=== PATIENT | male | born 1950 | race Caucasian/White ===

== ENCOUNTER → 2017-04-01 | Day surgery (SDC) | payer OTHER ==
[2017-03-29 07:38] VITALS: Ht 175.3 cm; Wt 106.4 kg
[~2017-04-01] VITALS: Ht 175.3 cm; Wt 106.4 kg
[~2017-04-01] MED LIST: ASPI81TA28 PO; GARL1CAP6 PO; LIDOCAINE HCL 2% 2 ML VIAL (20MG/ML) ONE; LISI-729 PO; MULT-506 PO; OMEGCAP2 PO; OMEP20TA PO; ONDANSETRON INJ 2 MG/ML 2 ML VIAL IV PRN; PROPOFOL IV EMULSION 10 MG/ML 20 ML VIAL IV ONE; VITA400C3 PO
--- NOTE | 2017-04-01 10:05 | Endo History and Physical ---
History & Physical Date of Service: Apr 01, 2017. Chief Complaint: Hx of colon polyps Referring Physician: Tessa History of Present Illness 66-year-old male with a history of a large colon polyp for surveillance colonoscopy today. He reports having no symptoms today. Past Surgical History Hx Cardiac Surgery: No Hx Internal Defibrillator: No Hx Pacemaker: No Hx Abdominal Surgery: No Hx of Implantable Prosthesis: No Hx Post-Op Nausea and Vomiting: No Hx Cancer Surgery: No Hx Thoracic Surgery: No Hx Orthopedic: Yes (LT TKA, RT KNEE SURGERY) Hx Urinary Tract Surgery: No Family History None Social History Smoking Status: Never Smoker Hx Substance Use: No Hx Alcohol Use: Yes (OCCASIONAL) Allergies Coded Allergies: Naproxen (Verified Allergy, Unknown, "BLISTER ON BACK", 04/01/17) Shrimp (Verified Allergy, Unknown, "CHILLS", 04/01/17) Current Medications Reported Home Medications Medications Dose Route/Sig Max Daily Dose Days Date Category Garlic 10 Mg Cap 1 Cap PO QAM 03/29/17 Reported Vitamin E 400 Iu (Vitamin E) 400 Unit Cap 400 Inter.unit PO QPM 03/29/17 Reported Omeprazole 20 Mg Tab 1 Tab PO DAILY PRN 01/11/16 Reported Multivitamin (Multivitamins) Tab 1 Tab PO QAM 01/11/16 Reported Aspirin Ec (Aspirin) 81 Mg Tab 81 Mg PO QPM 01/11/16 Reported Fish Oil ([place]-3 Fatty Acids) 1 Cap Cap 1 Cap PO BID 01/11/16 Reported Prinivil (Lisinopril) 5 Mg Tab 5 Mg PO BID 10/16/10 Reported Vital Signs Weight (Kilograms): 106.36 Height (Feet): 5 Height (Inches): 9 Date Time Temp Pulse Resp B/P (MAP) Pulse Ox O2 Delivery O2 Flow Rate FiO2 04/01/17 09:50 36.4 61 18 161/92 (115) 96 Room Air Physical Exam General Appearance: no apparent distress Respiratory/Chest: Auscultation: breath sounds normal Cardiovascular: Heart Auscultation: RRR Abdomen: Inspection & Palpation: soft, non-distended Assessment and Plan Patient with a history of a large colon polyp for surveillance colonoscopy today. We have discussed the risks to include bleeding, infection, perforation missed polyps and need for follow-up studies. Plan Colonoscpy today
--- NOTE | 2017-04-01 10:46 | Discharge Instructions ---
Endoscopy Patient Instructions Date / Procedure(s) Performed Apr 01, 2017. Colonoscopy Allergy Information Coded Allergies: Naproxen (Verified Allergy, Unknown, "BLISTER ON BACK", 04/01/17) Shrimp (Verified Allergy, Unknown, "CHILLS", 04/01/17) Discharge Date / Findings Apr 01, 2017. Internal hemorrhoids Diverticulosis of the sigmoid colon 1 colon polyp removed today (at site of prior polypectomy) Medication Instructions Stopped Medication(s): Aspirin stopped 03-28-17 Reported Home Medications Medications Dose Route/Sig Max Daily Dose Days Date Category Garlic 10 Mg Cap 1 Cap PO QAM 03/29/17 Reported Vitamin E 400 Iu (Vitamin E) 400 Unit Cap 400 Inter.unit PO QPM 03/29/17 Reported Omeprazole 20 Mg Tab 1 Tab PO DAILY PRN 01/11/16 Reported Multivitamin (Multivitamins) Tab 1 Tab PO QAM 01/11/16 Reported Aspirin Ec (Aspirin) 81 Mg Tab 81 Mg PO QPM 01/11/16 Reported Fish Oil ([place]-3 Fatty Acids) 1 Cap Cap 1 Cap PO BID 01/11/16 Reported Prinivil (Lisinopril) 5 Mg Tab 5 Mg PO BID 10/16/10 Reported Provider Instructions Activity Restrictions - No exercising or heavy lifting for 24 hours. - Do not drink alcohol the day of the procedure. - Do not drive a car or operate machinery until the day after the procedure. - Do not make any important decisions or sign important papers in 24 hours after the procedure. Following Day: - Return to full activity which may include returning to work/school. Diet Start your diet with liquids and light foods (jello, soup, juice, toast). Then eat your usual diet if not nauseated. Treatment For Common After Affects For mild abdominal pain, bloating, or excessive gas: - Rest - Eat lightly - Lie on right side Follow-Up Information Follow-up with Dr. Zarate as scheduled Repeat colonoscopy in 3 years depending on pathology results Anesthesia Information What You Should Know You have had a procedure that required some medicine to reduce anxiety and discomfort. This treatment is called moderate sedation. After receiving the treatment, you may be sleepy, but you will be able to breathe on your own. The effects of the treatment may last for several hours. Follow these instructions along with Activity/Diet recommendations noted above: * Do NOT do anything where dizziness or clumsiness would be dangerous. * Rest quietly at home today, then you can be up and about tomorrow. * Have a responsible person stay with you the rest of today. * You may have had an I.V. today. If so, you may take the dressing off later today. Recommendations Call your doctor if: * Trouble breathing * Continuous vomiting for more than 24 hours * Temperature above 101 degrees * Severe abdominal pain or bloating * Pain not relieved by pain medicine ordered * There is increased drainage or redness from any incision * A large amount of rectal bleeding greater than 2-3 tablespoons. (If you had a polyp/s removed or have hemorrhoids, a small amount of blood - from the rectum is to be expected.) * You have any unanswered questions or concerns. IN THE EVENT OF A SERIOUS EMERGENCY, GO TO THE NEAREST EMERGENCY ROOM Your discharge instructions were prepared by provider Robert Dow. Patient Instructions Signature Page John Blake Patient (or Guardian) Signature/Date: I have read and understand the instructions given to me by my caregivers. Caregiver/RN/Doctor Signature/Date: The above-named patient and/or guardian has received patient instructions on this date. + Original Patient Signature Page (only) stays with chart. Please make copy for patient.
--- NOTE | 2017-04-01 10:46 | GI REPORT ---
Procedure Date: 04/01/2017 9:55 AM Procedure: Colonoscopy Indications: High risk colon cancer surveillance: Personal history of colonic polyps Medicines: Monitored Anesthesia Care Complications: No immediate complications. Estimated blood loss: Minimal. Estimated Blood Loss: Estimated blood loss was minimal. Procedure: Pre-Anesthesia Assessment: - Prior to the procedure, a History and Physical was performed, and patient medications, allergies and sensitivities were reviewed. The patient's tolerance of previous anesthesia was reviewed. - The risks and benefits of the procedure and the sedation options and risks were discussed with the patient. All questions were answered and informed consent was obtained. - Patient identification and proposed procedure were verified prior to the procedure by the physician, the nurse and the cooler servicer. The procedure was verified in the procedure room. - Pre-procedure physical examination revealed no contraindications to sedation. - ASA Grade Assessment: II - A patient with mild systemic disease. - After reviewing the risks and benefits, the patient was deemed in satisfactory condition to undergo the procedure. - The anesthesia plan was to use monitored anesthesia care (MAC). - Immediately prior to administration of medications, the patient was re-assessed for adequacy to receive sedatives. - The heart rate, respiratory rate, oxygen saturations, blood pressure, adequacy of pulmonary ventilation, and response to care were monitored throughout the procedure. - The physical status of the patient was re-assessed after the procedure. After I obtained informed consent, the scope was passed under direct vision. Throughout the procedure, the patient's blood pressure, pulse, and oxygen saturations were monitored continuously. The Scope was introduced through the anus and advanced to the terminal ileum. The colonoscopy was performed without difficulty. The patient tolerated the procedure well. The quality of the bowel preparation was good. Findings: The perianal and digital rectal examinations were normal. Pertinent negatives include normal sphincter tone. The terminal ileum appeared normal. A tattoo was seen in the sigmoid colon. A scar was found at the tattoo site with a 10 mm residual polyp. The polyp was removed with a hot snare in a single pass. Resection and retrieval were complete. To prevent bleeding after the polypectomy, two hemostatic clips were successfully placed (MR conditional, [employer]). There was no bleeding at the end of the procedure. A few small-mouthed diverticula were found in the sigmoid colon. Internal hemorrhoids were found during retroflexion. The hemorrhoids were mild. The exam was otherwise without abnormality. Impression: - The examined portion of the ileum was normal. - A tattoo was seen in the sigmoid colon. A residual polyp was found at the tattoo site. Resected with a hot snare and 2 clips (MR conditional) were placed. - Mild diverticulosis in the sigmoid colon. - Internal hemorrhoids. - The examination was otherwise normal. Recommendation: - Discharge patient to home (ambulatory). - Advance diet as tolerated today. - Await pathology results. - Repeat colonoscopy in 3 years for surveillance based on pathology results. Rboert Dow D.O. Robert Dow, 04/01/2017 10:44:57 AM This report has been signed electronically. Note Initiated On: 04/01/2017 9:55 AM I attest to the content of the Intraoperative Record and orders documented therein, exceptions below
--- NOTE | 2017-04-01 10:54 | Anesthesiology Progress Note ---
Anesthesia Post Op Note Date & Time Apr 01, 2017 at 10:54 Vital Signs Pain Intensity: 0 Vital Signs Past 12 Hours Date Time Temp Pulse Resp B/P (MAP) Pulse Ox O2 Delivery O2 Flow Rate FiO2 04/01/17 10:42 70 18 118/78 (91) 95 Room Air 04/01/17 09:50 36.4 61 18 161/92 (115) 96 Room Air Notes Mental Status: alert / awake / arousable, participated in evaluation Pt Amnestic to Procedure: Yes Nausea / Vomiting: adequately controlled Pain: adequately controlled Airway Patency, RR, SpO2: stable & adequate BP & HR: stable & adequate Hydration State: stable & adequate Anesthetic Complications: no major complications apparent
[2017-04-01 11:12] VITALS: BP 148/88; PULSE 50; O2SAT 99
== END | disposition home or self-care (01) ==
LOC: C.GI 09:17
PROVIDERS: ATTEND Internal Medicine Gastroenterology
DX: Z12.11 Encounter for screening for malignant neoplasm of colon (principal); Z86.010 Personal history of colon polyps; L81.8 Other specified disorders of pigmentation; K64.8 Other hemorrhoids; I10 Essential (primary) hypertension; K57.30 Diverticulosis of large intestine without perforation or abscess without bleeding; Z96.652 Presence of left artificial knee joint; Z79.82 Long term (current) use of aspirin